=== PATIENT | male | born 1940 | race Caucasian/White ===

== ENCOUNTER 2016-10-21 16:17 | Outpatient (CLI) | payer OTHER | END 2016-10-21 19:44 | disposition home or self-care (01) | LOC: SRD 16:17 | PROVIDERS: ATTEND Internal Medicine | DX: M17.12 Unilateral primary osteoarthritis, left knee (principal) | CPT/HCPCS: 73564 ==

== ENCOUNTER 2018-06-02 07:46 | Outpatient (CLI) | payer OTHER | END 2018-06-02 20:45 | disposition home or self-care (01) | LOC: SUS 07:46 | PROVIDERS: ATTEND Internal Medicine | DX: R16.0 Hepatomegaly, not elsewhere classified (principal) | CPT/HCPCS: 76700-TC ==

== ENCOUNTER 2018-10-29 14:03 | Outpatient (CLI) | payer OTHER | END 2018-10-29 21:09 | disposition home or self-care (01) | LOC: SRD 14:03 | PROVIDERS: ATTEND Internal Medicine | DX: M17.12 Unilateral primary osteoarthritis, left knee (principal); M19.012 Primary osteoarthritis, left shoulder | CPT/HCPCS: 73030; 73564 ==

== ENCOUNTER 2020-11-02 14:49 | Outpatient (CLI) | payer OTHER | END 2020-11-02 20:50 | disposition home or self-care (01) | LOC: SRD 14:49 | PROVIDERS: ATTEND Internal Medicine | DX: M79.641 Pain in right hand (principal) ==